=== PATIENT | male | born 1975 | race Caucasian/White ===

== ENCOUNTER 2020-06-04 20:43 | Emergency (ER) | payer BC ==
[2020-06-04 20:55] VITALS: BP 146/89; PULSE 84; TEMP 98
[2020-06-04 21:08] VITALS: RESP 20
[2020-06-04] MEDS ORDERED: IBUPROFEN 600 MG TAB PO STA (21:18)
[2020-06-04] MEDS ORDERED: BACITRACIN OINT 1 EACH PACKET TOPICAL ONE (21:18)
[2020-06-04] MEDS ORDERED: DIPH,PERTUS(ACELL)TETVAC-LF 0.5 ML VIAL IM ONE (21:18)
--- NOTE | 2020-06-04 21:30 | ED ---
General Adult HPI - General Chief complaint: Wound/Laceration Stated complaint: Head Laceration Time Seen by Provider: 06/04/20 21:08 Source: patient Mode of arrival: ambulatory Limitations: no limitations - History of Present Illness Initial comments: Patient is a 44-year-old male presenting to the emergency Department with complaints of laceration to his posterior scalp. Patient states he got tangled in his dog leashes and fell backwards striking the back of his head on a step. He does admit to alcohol use today. He denies loss of consciousness. He does have a headache, no blurry vision, no nausea or vomiting. He denies any blood thinners. He denies any neck pain, no back pain no chest pain or shortness of breath. He states he does not remember when his last tetanus vaccine was. He has no further complaints at this time. - Related Data Allergies Allergy/AdvReac Type Severity Reaction Status Date / Time Penicillins Allergy Unknown Verified 06/04/20 20:55 Childhood Review of Systems ROS Statement: Those systems with pertinent positive or pertinent negative responses have been documented in the HPI. ROS Other: All systems not noted in ROS Statement are negative. Past Medical History Past Medical History: Seizure Disorder History of Any Multi-Drug Resistant Organisms: None Reported Past Surgical History: No Surgical Hx Reported Past Psychological History: No Psychological Hx Reported Smoking Status: Current every day smoker Past Alcohol Use History: Daily Past Drug Use History: Marijuana General Exam - General Exam Comments Initial Comments: GENERAL: Patient is well-developed and well-nourished. Patient is nontoxic and in no acute distress. HEAD: Patient has a large, 6cm laceration noted to the posterior scalp, some mild tenderness around the laceration. No obvious hematoma. No signs of basilar skull fracture. EYES: Pupils equal round and reactive to light, extraocular movements intact, sclera anicteric, conjunctiva are normal. Eyelids were unremarkable. ENT: TMs normal, nares patent, oropharynx clear without exudates. Moist mucous membranes. NECK: Normal range of motion, supple without lymphadenopathy or JVD. No midline tenderness. LUNGS: Unlabored respirations. Breath sounds clear to auscultation bilaterally and equ al. No wheezes rales or rhonchi. HEART: Regular rate and rhythm without murmurs, rubs or gallops. ABDOMEN: Soft, nontender, normoactive bowel sounds. No guarding, no rebound. No masses appreciated. : Deferred MUSCULOSKELETAL: Normal extremities with adequate strength and normal range of motion, no pitting or edema. No clubbing or cyanosis. NEUROLOGICAL: Patient is alert and oriented x 3. Motor and sensory are also intact. Cranial nerves II through XII grossly intact. Symmetrical smile. Normal speech, normal gait. PSYCH: Normal mood, normal affect. SKIN: Warm, Dry, normal turgor, no rashes. Other than noted above. Limitations: no limitations Course Vital Signs 06/04/20 20:51 Temperature 98.0 F Pulse Rate 84 Respiratory 20 Rate Blood Pressure 146/89 O2 Sat by Pulse 98 Oximetry Procedures - Laceration Laceration #1 Consent Obtained: verbal consent Indication: laceration Site: scalp Size (cm): 6 Description: linear Depth: simple, single layer Patient Tolerated Procedure: well Additional Comments: 8 elyssa were used to close patient's wound. He tolerated procedure well. No active bleeding. Medical Decision Making - Medical Decision Making Patient is a 44-year-old male here with a laceration to the back of his head. Patient states he tripped and his dog leashes and fell backwards striking the back of his head on a step. He does admit to alcohol use. No LOC, positive headache, no nausea or vomiting. His exam reveals a 6 cm laceration to the posterior scalp. No obvious hematomas. I did recommend a CT of the brain however patient refused. I discussed the complications that can arise from a bleed in the brain, patient still refused. I closed patient's wound with 8 elyssa. He tolerated procedure well. Tetanus vaccine is updated today. He is stable for discharge. Strict return parameters discussed with the patient and he verbalized understanding. Case discussed with Dr. Rojo. Disposition Clinical Impression: Laceration of scalp, Fall Disposition: HOME SELF-CARE Condition: Stable Instructions (If sedation given, give patient instructions): [facility] (ED) Additional Instructions: Please return to the Emergency Department if symptoms worsen or any other concerns. Elyssa need to be removed in 7-10 days. Keep area clean and dry. Is patient prescribed a controlled substance at d/c from ED?: No Referrals: Ham Alcantara MD [Primary Care Provider] - 1-2 days
== END 2020-06-04 22:04 | disposition home or self-care (01) ==
LOC: EC 20:43
DX: S01.01XA Laceration without foreign body of scalp, initial encounter (principal); W18.39XA Other fall on same level, initial encounter; F17.200 Nicotine dependence, unspecified, uncomplicated; F12.90 Cannabis use, unspecified, uncomplicated; Z23 Encounter for immunization
CPT/HCPCS: 12002; 90471; 90715; 99282

== ENCOUNTER → 2021-01-15 | Outpatient (CLI) | payer BC | END | disposition home or self-care (01) | LOC: LABWHC1 15:51 | PROVIDERS: ATTEND Urology | DX: R97.20 Elevated prostate specific antigen [PSA] (principal) | CPT/HCPCS: 36415; 84153 ==

== ENCOUNTER → 2021-02-25 | Outpatient (CLI) | payer BC ==
--- NOTE | 2021-02-25 10:13 | CT ---
EXAMINATION TYPE: CT abdomen pelvis w con DATE OF EXAM: 02/25/2021 COMPARISON: None. HISTORY: Prostate cancer CT DLP: 1921.10 mGycm, Automated Exposure Control for Dose Reduction was Utilized. CONTRAST: CT scan of the abdomen and pelvis is performed with oral and with IV Contrast, patient injected with 100 mL of Isovue 300. FINDINGS: LUNG BASES: No significant abnormality is appreciated. LIVER/GB: No significant abnormality is appreciated. PANCREAS: No significant abnormality is seen. SPLEEN: No significant abnormality is seen. ADRENALS: No significant abnormality is seen. KIDNEYS: Symmetric cortical medullary uptake and excretion without hydronephrosis seen bilaterally. BOWEL: Normal appearing appendix from the cecum in the right lower quadrant. Oral contrast reaches le jose of the rectum. Mild to moderate wall thickening in the sigmoid colon. Mild diverticular disease a t this level. No significant surrounding fat stranding. Finding position product of chronic diverticu litis. Terminal ileum appears within normal limits. No suspicious small or large bowel dilatation. PROSTATE/SEMINAL VESICLES: Prostate gland measures normal in size. Adjacent pelvic phlebolith more nu merous on the left. Seminal vesicles appear unremarkable. No abnormal pelvic adenopathy clearly seen. LYMPH NODES: No greater than 1cm abdominal or pelvic lymph nodes are appreciated. OSSEOUS STRUCTURES: Transitional type L6 vertebra is sacralized on the right. Mild disc space narrowi ng with vacuum disc phenomenon L5- L6 level. Facet arthropathy lower lumbar levels. Moderate axial felix int space loss both hips. Nonspecific subcentimeter sclerotic foci bilateral iliac bones of both hip joints on the left coronal image 72 and on the right coronal image 74 favor benign bone islands over early sclerotic metastatic disease OTHER: No significant additional abnormality is seen. IMPRESSION: Nonspecific 2 subcentimeter sclerotic foci in the pelvis favor benign bone islands but ca n be followed. No additional suspicious lesions or lymph nodes to suggest metastatic disease.
--- NOTE | 2021-02-25 14:35 | NM ---
EXAMINATION TYPE: NM bone scan whole body DATE OF EXAM: 02/25/2021 COMPARISON: NONE HISTORY: C61 Prostate CA Delayed whole-body scanning was performed following the injection of 24.3 mCi Tc 99m MDP. Images acq uired 5 hours post injection. FINDINGS: Focal increased uptake involving posterior right rib #10. There is also vague uptake involving the T9 pedicle on the right. Vague increased calvarial uptake seen posteriorly on the right as well. No add itional abnormal areas of increased uptake noted. IMPRESSION: I cannot exclude metastatic disease to the right posterior rib #10, right T9 pedicle and bony calvari um. Radiographic correlation is recommended.
== END | disposition home or self-care (01) ==
LOC: RADCTMAIN 07:37
PROVIDERS: ATTEND Urology
DX: C61 Malignant neoplasm of prostate (principal); M89.8X8 Other specified disorders of bone, other site
CPT/HCPCS: 74177; 78306; A9503; Q9967

== ENCOUNTER → 2021-03-06 | Outpatient (CLI) | payer BC ==
--- NOTE | 2021-03-07 08:45 | XR ---
EXAMINATION TYPE: XR ribs 4 views RT, XR thoracic spine 5 views complete, XR skull 4 views complete DATE OF EXAM: 03/06/2021 COMPARISON: Correlation CT abdomen pelvis 02/25/2021 HISTORY: 45-year-old male C61, history of prostate cancer. FINDINGS: Right RIBS: Right hemithorax appears clear without pneumothorax, consolidation, or pleural effusion. Right-sided ribs show no periostitis or osteolysis. Thoracic spine: There is anterior and right lateral endplate spondylosis in the lower thoracic spine noted. All of th e pedicles are visualized. Vertebral body heights are preserved. Alignment is maintained. Skull: Possible faint lucency along the right posterior calvarium. No periosteal reaction or focal sclerotic lesion identified. IMPRESSION: 1. Right RIBS: No CT or radiographic correlate to the focal increased activity involving the posterio r right 10th or 11th rib seen on the nuclear medicine exam. Unsure if this is some type of contaminat ion. Occult osseous disease is not excluded at this time. If PSA values are not suggestive of osseous metastases, consider repeating the nuclear medicine exam. 2. Thoracic spine: Activity along the right lateral T9 or T10 level on bone scan may correspond to en dplate spondylosis rather than metastatic disease. 3. Skull: Questionable subtle lucency along the right posterior calvarium. This is not a typical appe arance for bony prostate metastases. It is nonspecific; hemangioma is possible. Other lytic lesion no t excluded. Recommend CT of the brain to further evaluate.
== END | disposition home or self-care (01) ==
LOC: RADXRMAIN 16:13
PROVIDERS: ATTEND Urology
DX: C61 Malignant neoplasm of prostate (principal)
CPT/HCPCS: 70260; 72072

== ENCOUNTER → 2021-03-21 | Outpatient (CLI) | payer BC ==
[2021-03-21 14:15] LABS: Basophils % (A) 1 %; Eosinophils # (A) 0.1 k/uL (0-0.7); Eosinophils % (A) 1 %; HCT 45.5 % (39.0-53.0); HGB 14.8 gm/dL (13.0-17.5); Lymphocytes # (A) 1.9 k/uL (1.0-4.8); Lymphocytes % (A) 27 %; MCH 32.2 pg (25.0-35.0); MCHC 32.5 g/dL (31.0-37.0); MCV 99.1 fL (80.0-100.0); Mean Platelet Volume 7.5; Monocytes # (A) 0.5 k/uL (0-1.0); Monocytes % (A) 7 %; Neutrophils # (A) 4.4 k/uL (1.3-7.7); Neutrophils % (A) 63 %; Platelet Count 258 k/uL (150-450); RBC 4.59 m/uL (4.30-5.90); RDW 12.4 % (11.5-15.5); WBC 6.9 k/uL (3.8-10.6)
[2021-03-21 14:30] LABS: African American GFR (CKD) >90 (>60 ml/min/1.73 sqM); Anion Gap 10 mmol/L; Blood Urea Nitrogen 14 mg/dL (9-20); Calcium 10.2 mg/dL (8.4-10.2); Carbon Dioxide 26 mmol/L (22-30); Chloride 106 mmol/L (98-107); Glucose 101 mg/dL (74-99); Non-African American GFR(CKD) >90 (>60 ml/min/1.73 sqM); Potassium 3.9 mmol/L (3.5-5.1); Sodium 142 mmol/L (137-145)
[2021-03-21 14:55] LABS: Appearance,Urine Cloudy (Clear); Bilirubin,Urine Negative (Negative); Blood,Urine Negative (Negative); Color,Urine Yellow; Glucose,Urine (UA) Negative (Negative); Ketones,Urine Trace (Negative); Leukocyte Esterase,Urine Trace (Negative); Mucus,Urine Many /hpf; Nitrite,Urine Negative (Negative); PH, Urine 5.5 (5.0-8.0); Protein,Urine Trace (Negative); RBC,Urine 1 /hpf (0-5); Specific Gravity,Urine 1.029 (1.001-1.035); Urobilinogen,Urine <2.0 mg/dL (<2.0); WBC,Urine 5 /hpf (0-5)
== END | disposition home or self-care (01) ==
LOC: LABWHC1 13:26
PROVIDERS: ATTEND Urology
DX: Z01.818 Encounter for other preprocedural examination (principal); C61 Malignant neoplasm of prostate
CPT/HCPCS: 80048; 81001; 85025; 87086; 93005

== ENCOUNTER 2021-03-27 09:18 | Day surgery (SDC) | payer BC ==
[2021-03-20 16:17] VITALS: BMI 35.2
--- NOTE | 2021-03-22 15:50 | P.HPIHPCON ---
History of Present Illness H&P Date: 03/22/21 Chief Complaint: prostate cancer This is a 45-year-old male with history of [place] 6 prostate cancer, his PSA was 22. He underwent bone scan and a CT, which did not completely rule out metastatic disease. Discussed with him based on his pathology the potential of metastatic disease is low, but his PSA level is concerning. Discussed with him given his age I do recommend proceeding with treatments, but discussed with him if there is metastatic disease, then the surgery will not be curative. Discussed with him the option of robotic prostatectomy, versus radiation. Both options were discussed in detail. He agreed to proceed with a robotic prostatectomy. Discussed with him the risk which includes but not limited to bleeding, infection, injury to nearby organs which includes but not limited to bladder, bowel, rectum. Discussed with him also the risk of erectile dysfunction and urinary incontinence. Discussed the potential of needing additional treatments in the future. He understood all the risk and agreed to proceed Consent for Procedure: I have explained the operation/procedure to the patient, including the risks, benefits, side effects, alternative therapies (including not receiving the proposed treatment or service), the likelihood of the patient achieving his/her goals, and potential recuperation problems for the procedure/sedation/analgesia, as well as any blood products, if indicated. I also explained to the patient the risks, benefits and side effects of the alternatives, as well as the risks related to not receiving the proposed procedure, care, treatment, or services. Past Medical History Past Medical History: Cancer, GERD/Reflux, Seizure Disorder Additional Past Medical History / Comment(s): Dog bite on hand 03/16/21 on [facility]una[facility] cyclineladio, patient states Dr ayala. Current prostate cancer. "BP a little high, no medication necessary". Last seizure 4 yrs ago. History of Any Multi-Drug Resistant Organisms: None Reported Past Surgical History: No Surgical Hx Reported Past Anesthesia/Blood Transfusion Reactions: Motion Sickness Additional Past Anesthesia/Blood Transfusion Reaction / Comment(s): Has never had anesthesia. Motion sickness X1. Past Psychological History: No Psychological Hx Reported Smoking Status: Current every day smoker Past Alcohol Use History: Daily, Heavy Additional Past Alcohol Use History / Comment(s): Has been smoking for 30 yrs, 1 ppd or less. Past Drug Use History: Marijuana Additional Drug Use History / Comment(s): Occasional Marijuana, 3-4 times a week. Aware no Alcohol or Marijuana 24 hrs prior to procedure. - Past Family History Mother Family Medical History: No Reported History Medications and Allergies Home Medications Medication Instructions Recorded Confirmed Type Doxycycline [Vibramycin] 100 mg PO BID 03/20/21 03/20/21 History Omeprazole [PriLOSEC] 20 mg PO AC-BRKFST PRN 03/20/21 03/20/21 History carBAMazepine 200 mg PO BID 03/20/21 03/20/21 History Doxylamine Succinate [Unisom] 25 mg PO HS PRN 03/21/21 03/21/21 History Melatonin 10 mg PO HS PRN 03/21/21 03/21/21 History Allergies Allergy/AdvReac Type Severity Reaction Status Date / Time Penicillins Allergy Unknown Verified 03/20/21 16:00 Childhood Surgical - Exam - General no distress, no pain - Eyes normal ocular movement - ENT normal nares, normal mucosa - Respiratory normal expansion, normal respiratory effort - Abdomen Abdomen: soft, non tender - Psychiatric oriented to time, oriented to person, oriented to place Assessment and Plan Assessment: 45-year-old male with history of prostate cancer -Or for robotic prostatectomy, with pelvic lymph node dissection
[~2021-03-27 09:18] MED LIST: GENTAMICIN 120 MG in SODIUM CHLORIDE 0.9% 100 ML IVPB PRN; HEPARIN SODIUM,PORCINE/PF 5,000 UNIT/0.5 ML SYRINGE SQ PRN
[2021-03-27] MEDS ORDERED: DEXAMETHASONE SOD PHOSPHATE 4 MG/ML 1 ML VIAL IV ONE (10:00)
[2021-03-27] MEDS ORDERED: ONDANSETRON 4 MG/2 ML VIAL ONE ×2 (10:03→13:00)
[2021-03-27] MEDS ORDERED: LACTATED RINGERS 1,000 ML IV ONE ×3 (10:11→17:32)
[2021-03-27] MEDS ORDERED: MIDAZOLAM 2 MG/2 ML VIAL IVP ONE (10:24)
[2021-03-27] MEDS: CLINDAMYCIN 600 MG in DEXTROSE 5% IN WATER 50 ML IVPB PRN ×4 (10:52→11:55)
--- NOTE | 2021-03-27 11:20 | P.ANPRN ---
Procedure Note - Anesthesia - Nerve Block Performed Bilateral Erector Spinae Single Time Out Performed: Yes (1023) Date of Procedure: 03/27/21 Location of Patient: PreOp Indication: Acute Post-Operative Pain, Dx/Pain Location (Abdominal pain) Specifically requested for management of pain by DrGurdeep: Bull Jaimes Sedation Type: Sedate with meaningful contact maintained Preparation: Sterile Prep Position: Prone Catheter: None Needle Gauge: 21 Ultrasound used to visualize needle placement: Yes Ultrasound used to observe medication spread: Yes Injectate: 0.5% Ropivacaine (see comment for volume) (30 cc + saline 20 cc) Blood Aspirated: No Pain Paresthesia on Injection Noted: No Resistance on Injection: Normal Image Stored and Saved: Yes Events: Uneventful and Well Tolerated
[2021-03-27] MEDS ORDERED: diphenhydrAMINE 25 MG CAP PO PRN (13:00)
[2021-03-27] MEDS ORDERED: NEOSTIGMINE 1 MG/ML 10 ML VIAL ONE (13:00)
[2021-03-27] MEDS ORDERED: ROPIVACAINE 5 MG/ML 30 ML VIAL ONE (13:00)
[2021-03-27] MEDS ORDERED: MIDAZOLAM 2 MG/2 ML VIAL ONE (13:00)
[2021-03-27] MEDS ORDERED: SUCCINYLCHOLINE CHLORIDE 100 MG/5 ML SYR IV ONE (13:00)
[2021-03-27] MEDS ORDERED: PHENYLEPHRINE-0.9% NACL SYG 1,000 MCG/10 ML SYRINGE ONE (13:00)
[2021-03-27] MEDS ORDERED: LIDOCAINE 1% INJ 10MG/ML (20 ML MDV) ONE (13:00)
[2021-03-27] MEDS ORDERED: ROCURONIUM 10 MG/ML (5 ML VIAL) IV ONE (13:00)
[2021-03-27] MEDS ORDERED: HYDROmorphone (PF) 1 MG/ML ONE (13:00)
[2021-03-27] MEDS ORDERED: GLYCOPYRROLATE 0.2 MG/ML 2 ML VIAL ONE (13:00)
[2021-03-27] MEDS ORDERED: MELATONIN 5 MG TABLET PO PRN (13:00)
[2021-03-27] MEDS ORDERED: PANTOPRAZOLE 40 MG TABLET PO PRN (13:00)
[2021-03-27] MEDS ORDERED: PROPOFOL 10 MG/ML 20 ML VIAL IV ONE (13:00)
[2021-03-27] MEDS ORDERED: fentaNYL (PF) 50 MCG/ML 2 ML AMP ONE (13:00)
[2021-03-27] MEDS ORDERED: SODIUM CHLORIDE 0.9% (PF) 10 ML VIAL ONE (13:00)
[2021-03-27] MEDS ORDERED: ONDANSETRON 4 MG/2 ML VIAL IVP PRN (13:01)
[2021-03-27] MEDS ORDERED: BUPIVACAINE (PF) 0.25% 30 ML VIAL SQ ONE (16:55)
--- NOTE | 2021-03-27 18:23 | P.OP ---
Date of Procedure: 03/27/21 Preoperative Diagnosis: prostate cancer Postoperative Diagnosis: same Procedure(s) Performed: robotic prostatectomy and pelvic lymph node dissection Implants: None Anesthesia: MIO Surgeon: Bull Jaimes Estimated Blood Loss (ml): 250 Pathology: other (Prostate, bilateral seminal vesicle, prostate base, bilateral pelvic lymph nodes) Condition: stable Disposition: PACU Indications for Procedure: This is a 45-year-old male with history of [place] 6 prostate cancer, his PSA was 22. He underwent bone scan and a CT, which did not completely rule out metastatic disease. Discussed with him based on his pathology the potential of metastatic disease is low, but his PSA level is concerning. Discussed with him given his age I do recommend proceeding with treatments, but discussed with him if there is metastatic disease, then the surgery will not be curative. Discussed with him the option of robotic prostatectomy, versus radiation. Both options were discussed in detail. He agreed to proceed with a robotic prostatectomy. Discussed with him the risk which includes but not limited to bleeding, infection, injury to nearby organs which includes but not limited to bladder, bowel, rectum. Discussed with him also the risk of erectile dysfunctio n and urinary incontinence. Discussed the potential of needing additional treatments in the future. He understood all the risk and agreed to proceed Operative Findings: Prostate adherent along the left base Description of Procedure: After preoperative antibiotics were started, the patient was taken to the operating room. Anesthesia was induced and the patient was placed in supine position, with adequate padding of the pressure points, shoulders, back, legs and arms. He was then prepped and draped in the standard fashion. A critical p ause was performed using two patient identifiers. A 16F linares catheter was placed to gravity drainage. A pneumo-peritoneum was created with placement of a Veress needle to 20 mm Hg without complication, and a 8 Fr trocar was placed above the umbillicus. Under direct vision a 8mm robotic ports was placed lateral to each rectus slightly below the camera port. The left iliac fossa 8mm port was placed. The right trust administrative assistant right iliac fossa 12mm port and right paramedian 5mm portwere placed. After the patient was placed in the trendelenberg position, the robot was then docked to the 8mm robotic ports and then each robotic arm and tower was checked in relation to the patient's legs and hands to avoid inadvertent compression. The peritoneal cavity was inspected. Patient had adhesion along the left lower quadrant which was taken down sharply An inverted U-shaped incision began laterally to the left medial umbilical ligament and extended high across the midline to the right umbilical ligament. The limbs of the "U" extended to the level of the vasa on both sides. We next developed the preperitoneal space and the space of Retzius. bilateral obturator and external iliac lymph node packets were carefully dissected after careful visualization of the hypogastric artery and obturator nerve. There was careful attention paid to hemostasis with judicious use of cautery. Cautery was used to dissected the bladder away from the prostate. After the anterior bladder neck was incised and the bladder entered the the posterior bladder neck was exposed and the ureteral orifces identified. The posterior bladder neck was then incised and dissected away from the prostate. The vas and the seminal vesicles were now exposed and dissected to their insertions into the prostate and were not spared. The posterior layer of the Denonvillier's fascia was incised to enter solange the plane between prostate and perirectal fat. The left base of the prostate was fairly adherent, there was no surgical plane. Additionally the prosthetic tissue was very friable, which limited the ability to retract with the fourth arm. I was able to create a posterior plane along the left base sharply., There was no evidence of rectal injury. Each lateral pedicle was controlled with clips and cautery for hemostasis. No nerve preservation was performed on the left, complete nerve preservation was performed on the right . The puboprostatic ligament was incised where it inserted into the apex of the prostate and a plane between urethra and dorsal venous complex developed to expose the anterior urethral surface. The anterior wall of the urethra was transected with the cut setting a few millimeters distal to the apex of the prostate. The dorsal vein was ligated using 3-0 V lock The urethrovesical anastomosis was performed . the posterior denovillers was reapproximated using 3-0 V lock. A 6 and 6 inch 3-0 V-Lock suture was used to anastomose the urethra and bladder, starting at the 6:00 posterior position. Mucosa was secured in every stitch, to ensure a mucosa to mucosa anastomosis. The stitch was regularly cinched and the anastomosis tightened. Care was taken to not violate the ureteral orifices. The Linares catheter was advanced, the bladder filled, and the anastomosis was tested, as described above. Anastomsis was watertight at 200 mL The periumbilical fascia was closed with 1-0-PDS suture in [id number] fashion. All ports were closed with a subcuticular 4-0 monocryl and Dermabond. Sponge, instrument, and needle counts were correct at the end of the case x2. All specimens including prostate and lymph nodes were sent to pathology for diagnosis and will be available in a week. The patient tolerated the surgery well and without complication. He awoke without difficulty and was taken to the recovery room in stable condition
[2021-03-27] MEDS: KETOROLAC 30 MG/ML 1 ML VIAL IVP SCH (19:17)
[2021-03-27] MEDS: carBAMazepine 200 MG TAB PO SCH (21:44)
[2021-03-27] MEDS: D5-0.45% NACL WITH KCL 20MEQ/L 1,000 ML IV SCH (21:51)
[2021-03-27] MEDS: HYDROcodone/APAP 5-325MG 1 EACH TAB PO PRN (23:02)
[2021-03-28] MEDS: HEPARIN SODIUM,PORCINE/PF 5,000 UNIT/0.5 ML SYRINGE SQ SCH ×3 (03:36→08:33)
[2021-03-28] MEDS: D5-0.45% NACL WITH KCL 20MEQ/L 1,000 ML IV SCH ×2 (05:21→12:06)
[2021-03-28 05:25] VITALS: BP 121/76; PULSE 98; RESP 18; TEMP 98.1
[2021-03-28] MEDS: KETOROLAC 30 MG/ML 1 ML VIAL IVP SCH ×3 (06:02→12:05)
[2021-03-28] MEDS: HYDROcodone/APAP 5-325MG 1 EACH TAB PO PRN ×2 (06:04→10:55)
--- NOTE | 2021-03-28 07:51 | P.DS ---
Providers Attending physician: Bull Jaimes MD Primary care physician: Ham Alcantara [facility] Course: This is a 45 yo male underwent robotic prostatecomy on 03/27/21, please see op note dated 03/27/21 for full surgery details. He was admitted to the hospital postoperatively. He did well in the postoperative period. He was discharged home on postop day #1 with the Ramos catheter. At time of discharge he was tolerating a diet, ambulating, and pain was well-controlled Plan - Discharge Summary Discharge Rx Participant: Yes New Discharge Prescriptions: No Action Omeprazole [PriLOSEC] 20 mg PO AC-BRKFST PRN PRN Reason: Heartburn Doxylamine Succinate [Unisom] 25 mg PO HS PRN PRN Reason: Insomnia carBAMazepine 200 mg PO BID Melatonin 10 mg PO HS PRN PRN Reason: Insomnia Discharge Medication List Omeprazole [PriLOSEC] 20 mg PO AC-BRKFST PRN 03/20/21 [History] carBAMazepine 200 mg PO BID 03/20/21 [History] Doxylamine Succinate [Unisom] 25 mg PO HS PRN 03/21/21 [History] Melatonin 10 mg PO HS PRN 03/21/21 [History]
[2021-03-28] MEDS: carBAMazepine 200 MG TAB PO SCH (08:33)
== END 2021-03-28 12:30 | disposition home or self-care (01) ==
LOC: OR 09:18 → 5NMEDONC 18:20 → OR 03-28 12:30
PROVIDERS: ATTEND Urology
DX: C61 Malignant neoplasm of prostate (principal); Z20.822 Contact with and (suspected) exposure to COVID-19
CPT/HCPCS: 55815; 64999; 76942; 86900; 86901; 86850; 88307; 88309; 87635; 36415; C1762; J2250; J1100; J2710; J2405; J2001; J3010; J1885 ×2; J1170; J2795; J2370; J0330; J2704; J1644 ×2

== ENCOUNTER 2021-07-31 14:55 | Observation (INO) | payer BC ==
[2021-07-31] MEDS ORDERED: SODIUM CHLORIDE 0.9% 1,000 ML IV STA (15:25)
[2021-07-31] MEDS ORDERED: SODIUM CHLORIDE 0.9% 500 ML 500 ML IV STA (15:25)
[2021-07-31] MEDS ORDERED: metroNIDAZOLE-NS PMX 500 MG in SALINE 1 100ML.BAG IVPB STA (15:26)
[2021-07-31] MEDS ORDERED: cefTRIAXone IN SWFI 1,000 MG/10 ML SYRINGE IVP STA (15:26)
--- NOTE | 2021-07-31 15:40 | ED ---
General Adult HPI - General Chief complaint: Abdominal Pain Stated complaint: Irregular CT Time Seen by Provider: 07/31/21 15:20 Source: patient, RN notes reviewed, old records reviewed Mode of arrival: ambulatory Limitations: no limitations - History of Present Illness Initial comments: 45-year-old male presenting for evaluation of right lower quadrant abdominal pain which has been present for the past 3 days. He was sent for outpatient computed tomography scan by his primary care physician Dr. Alcantara to rule out appendicitis. This test was performed earlier today and was positive for acute appendicitis. He has not felt well for 3 days. No measured fever. No vomiting. No diarrhea. Patient denies anticoagulation. He did not eat at all today. - Related Data Home Medications Medication Instructions Recorded Confirmed Omeprazole [PriLOSEC] 20 mg PO AC-BRKFST PRN 03/20/21 03/20/21 carBAMazepine 200 mg PO BID 03/20/21 03/20/21 Doxylamine Succinate [Unisom] 25 mg PO HS PRN 03/21/21 03/21/21 Melatonin 10 mg PO HS PRN 03/21/21 03/21/21 Previous Rx's Medication Instructions Recorded HYDROcodone/APAP 5-325MG [Touchet 1 tab PO Q6HR PRN 3 Days #6 tab 03/28/21 5-325] Ketorolac [Toradol] 10 mg PO Q6HR PRN #15 tab 03/28/21 Sulfamethox-Tmp 800-160Mg [Bactrim 1 tab PO Q12HR #6 tab 03/28/21 DS 800-160 mg] Allergies Allergy/AdvReac Type Severity Reaction Status Date / Time Penicillins Allergy Unknown Verified 07/31/21 15:07 Childhood Review of Systems ROS Statement: Those systems with pertinent positive or pertinent negative responses have been documented in the HPI. ROS Other: All systems not noted in ROS Statement are negative. Past Medical History Past Medical History: Cancer, GERD/Reflux, Seizure Disorder Additional Past Medical History / Comment(s): Dog bite on hand 03/16/21 on Doxycycline, patient states Dr ayala. Current prostate cancer. "BP a little high, no medication necessary". Last seizure 4 yrs ago. History of Any Multi-Drug Resistant Organisms: None Reported Past Surgical History: Prostate Surgery Past Anesthesia/Blood Transfusion Reactions: Motion Sickness Additional Past Anesthesia/Blood Transfusion Reaction / Comment(s): Has never had anesthesia. Motion sickness X1. Past Psychological History: No Psychological Hx Reported Smoking Status: Current every day smoker Past Alcohol Use History: Daily, Heavy Past Drug Use History: Marijuana - Past Family History Mother Family Medical History: No Reported History General Exam Limitations: no limitations General appearance: alert, in no apparent distress Head exam: Present: atraumatic, normocephalic Eye exam: Present: normal appearance, PERRL ENT exam: Present: normal exam Neck exam: Present: normal inspection. Absent: tenderness, meningismus Respiratory exam: Present: normal lung sounds bilaterally. Absent: respiratory distress, wheezes Cardiovascular Exam: Present: regular rate, normal rhythm GI/Abdominal exam: Present: soft, tenderness (Right lower quadrant tenderness). Absent: distended, guarding Extremities exam: Present: normal inspection, normal capillary refill. Absent: pedal edema, calf tenderness Neurological exam: Present: alert, oriented X3, CN II-XII intact. Absent: motor sensory deficit Psychiatric exam: Present: normal affect, normal mood Skin exam: Present: warm, dry, intact. Absent: cyanosis, diaphoretic Course Vital Signs 07/31/21 15:07 Temperature 98.2 F Pulse Rate 89 Respiratory 16 Rate Blood Pressure 161/93 O2 Sat by Pulse 94 L Oximetry Medical Decision Making - Medical Decision Making 45-year-old male who presented from outpatient computed tomography scan with acute appendicitis. Patient seen in the emergency department, he does have signs and symptoms consistent with acute appendicitis he will be admitted for surgical evaluation. Case discussed with Dr. Sawyer who will admit. Patient's primary care physician is placed on consult. Laboratory studies are pending. He started on antibiotics. Disposition Clinical Impression: Acute appendicitis Disposition: ADMITTED IP TO THIS HOSP Condition: Stable Is patient prescribed a controlled substance at d/c from ED?: No Referrals: Ham Alcantara MD [Primary Care Provider] - 1-2 days Time of Disposition: 16:02
[2021-07-31] MEDS ORDERED: ACETAMINOPHEN TAB 325 MG TAB PO PRN (16:00)
[2021-07-31] MEDS ORDERED: HYDROmorphone 0.5 MG/0.5 ML SYRINGE IVP PRN (16:00)
[2021-07-31] MEDS ORDERED: NALOXONE 0.4 MG/ML 1 ML VIAL IV PRN (16:00)
[2021-07-31] MEDS ORDERED: ONDANSETRON 4 MG/2 ML VIAL IVP PRN (16:00)
[2021-07-31 16:10] LABS: ALT 36 U/L (4-49); AST 44 U/L (17-59); African American GFR (CKD) >90 (>60 ml/min/1.73 sqM); Albumin 4.2 g/dL (3.5-5.0); Alkaline Phosphatase 102 U/L (38-126); Anion Gap 10 mmol/L; Blood Urea Nitrogen 6 mg/dL (9-20); Calcium 9.4 mg/dL (8.4-10.2); Carbon Dioxide 20 mmol/L (22-30); Chloride 110 mmol/L (98-107); Glucose 109 mg/dL (74-99); INR 0.9 (<1.2); Non-African American GFR(CKD) >90 (>60 ml/min/1.73 sqM); Partial Thromboplastin Time 23.7 sec (22.0-30.0); Potassium 2.9 mmol/L (3.5-5.1); Prothrombin Time 9.7 sec (9.0-12.0); Sodium 140 mmol/L (137-145); Total Bilirubin 0.4 mg/dL (0.2-1.3); Total Protein 6.9 g/dL (6.3-8.2)
[2021-07-31 16:16] LABS: HCT 45.7 % (39.0-53.0); HGB 15.4 gm/dL (13.0-17.5); MCH 32.8 pg (25.0-35.0); MCHC 33.6 g/dL (31.0-37.0); MCV 97.7 fL (80.0-100.0); Mean Platelet Volume 7.4; Platelet Count 257 k/uL (150-450); RBC 4.68 m/uL (4.30-5.90); RDW 13.6 % (11.5-15.5); WBC 6.3 k/uL (3.8-10.6)
[2021-07-31 16:45] LABS: Lymphocytes # (M) 1.89 k/uL (1.0-4.8); Monocytes # (M) 1.01 k/uL (0-1.0); Neutrophils % (M) 54 %; Nucleated Red Blood Cells 0 /100 WBC (0-0); Total Cells Counted 100
[2021-07-31] MEDS ORDERED: Potassium Replacement Protocol 1 EACH MISC MISCELLANE PRN (17:10)
[2021-07-31] MEDS ORDERED: SODIUM CHLORIDE 0.9% 2,000 ML IV ONE (17:32)
[2021-07-31] MEDS: POTASSIUM CHLORIDE 10 MEQ in WATER FOR INJECTION 1 100ML.BAG IVPB SCH ×6 (17:50→23:43)
[2021-07-31] MEDS ORDERED: POTASSIUM CHLORIDE ER 20 MEQ TAB.ER PO SCH (18:00)
[2021-07-31] MEDS ORDERED: diphenhydrAMINE 50 MG/ML 1 ML VIAL IVP PRN (18:37)
--- NOTE | 2021-07-31 19:20 | P.GSHP ---
History of Present Illness H&P Date: 07/31/21 CHIEF COMPLAINT: Right lower quadrant pain HISTORY OF PRESENT ILLNESS: The patient is a 45 year old male who reports 2 days ago developing right lower quadrant abdominal pain. No prior episodes. Pain was crampy in nature and moderate. He denies any antibiotics. No blood in stools. He reports moderate appetite. He say his primary care provider who ordered a CT scan. As a result of the findings of appendicitis, he was sent to the emergency room for admission. PAST MEDICAL HISTORY: See list and reviewed PAST SURGICAL HISTORY: See list and reviewed MEDICATIONS: See list and reviewed ALLERGIES: See list and reviewed SOCIAL HISTORY: See list and reviewed FAMILY HISTORY: See list and reviewed REVIEW OF ORGAN SYSTEMS: CONSTITUTIONAL: No fevers or chills. Has morbid obesity, BMI 35.3 EYES: Denies any trouble with vision. No glasses. HEENT: No difficulties with hearing. No nosebleeds. No difficulty swallowing. RESPIRATORY: Denies pneumonia. Denies any troubles with breathing or dyspnea on exertion. Has tobacco abuse disorder. CARDIOVASCULAR: Denies any chest pain, palpitations, or recent heart attacks. GASTROINTESTINAL: Denies fatty food intolerance. Denies change in bowel habits and gas bloat. Has gastroesophageal reflux disease. Has motion sickness. GENITOURINARY: Denies any blood in urine or increased urinary frequency. Recent prostatectomy for prostate cancer Mar 2021, 5 months ago NEUROLOGICAL: Denies any numbness or tingling along the distal extremities. Has disorders. MUSCULOSKELETAL: Denies any back pain, stiffness or joint arthritis. SKIN: No current skin cancer. No rash. PSYCHIATRIC: Denies current depression or suicidal thoughts. ENDOCRINE: Denies current thyroid disorders. Denies any blood sugar glucose intolerance. HEME/LYMPHATIC: Denies any lumps and bumps around the neck. No recent deep venous thrombosis. ALLERGY/IMMUNOLOGY: No immunoglobulin therapy. No immune deficiencies. BREAST: Denies current breast lumps, pain or nipple discharge. PHYSICAL EXAM: VITALS: Reviewed CONSTITUTIONAL: Well developed and in no acute distress. EYES: Conjuctivae without sclera icterus. Extraocular movements grossly intact. HEAD, EARS, NOSE, THROAT: Moist buccal mucosa. Head is atraumatic, normocephalic. Hears conversational speech. No nasal drainage. NECK: Supple. No JV distention. No thyroidomegaly. RESPIRATORY: Non-labored respirations and equal bilateral excursions. No gross wheezes. CARDIOVASCULAR: Regular rate and rhythm. Palpable 2+ radial pulses. ABDOMEN: No peritonitis. Tender right lower quadrant. LYMPH: No neck lymphadenopathy. MUSCULOSKELETAL: No clubbing cyanosis. SKIN: Warm and well perfused with good skin turgor. NEUROLOGIC: Cranial nerves II through XII grossly intact. No focal or lateralizing signs. PSYCH: Appropriate affect. Alert and oriented to person, place and time. Displays appropriate insight. CLINCAL LABS: Reviewed. WBC 6.3 and normal. Hgb 15.4 and normal. Potassium low 2.9. Lactic acid elevated 2.9 IMAGING: Independently reviewed alongside CT of the abdomen and pelvis with thickening of the colon of the cecum, ascending colon and transverse colon. Inflammation of the appendix. Mass along the right pelvis. Bilateral inguinal lipomas. This is my independent interpretation. RADIOLOGY: Report reviewed CT report pelvis cyst 3 x 5 cm along right pelvis. Diverticulosis with colitis and inflammation of the colon RECORDS: previous old records reviewed pathology with adenocarcinoma of the prostate. ASSESSMENT: 1. Abnormal computed tomography scan for appendicitis 2. Abdominal painm right lower quadrant 3. History of prostate cancer 4. Tobacco abuse disorder PLAN: 1. Admission for early appendicitis. 2. Broad spectrum antibiotics. 3. DVT prophylaxis 4. Robotic appendectomy described 5. NPO after midnight. 6. Nicotine patch 7. Patient elevated risk for complications with tobacco abuse disorder and morbid obesity. Past Medical History Past Medical History: Cancer, GERD/Reflux, Seizure Disorder Additional Past Medical History / Comment(s): Dog bite on hand 03/16/21 on Doxycycline, patient states aware. Current prostate cancer. "BP a little high, no medication necessary". Last seizure 4 yrs ago. History of Any Multi-Drug Resistant Organisms: None Reported Past Surgical History: Prostate Surgery Past Anesthesia/Blood Transfusion Reactions: Motion Sickness Additional Past Anesthesia/Blood Transfusion Reaction / Comment(s): Has never had anesthesia. Motion sickness X1. Past Psychological History: No Psychological Hx Reported Smoking Status: Current every day smoker Past Alcohol Use History: Daily, Heavy Additional Past Alcohol Use History / Comment(s): Has been smoking for 30 yrs, 1 ppd or less. Past Drug Use History: Marijuana Additional Drug Use History / Comment(s): Occasional Marijuana, 3-4 times a week. Aware no Alcohol or Marijuana 24 hrs prior to procedure. - Past Family History Mother Family Medical History: No Reported History Medications and Allergies Home Medications Medication Instructions Recorded Confirmed Type Omeprazole [PriLOSEC] 20 mg PO DAILY PRN 03/20/21 07/31/21 History carBAMazepine 200 mg PO BID 03/20/21 07/31/21 History Sildenafil [Revatio] 20 mg PO DAILY 07/31/21 07/31/21 History diphenhydrAMINE HCL [Benadryl] 25 mg PO HS 07/31/21 07/31/21 History Allergies Allergy/AdvReac Type Severity Reaction Status Date / Time Penicillins Allergy Unknown Verified 07/31/21 16:18 Childhood Surgical - Exam Vital Signs Temp Pulse Resp BP Pulse Ox 98.2 F 89 16 161/93 94 L 07/31/21 15:07 07/31/21 15:07 07/31/21 15:07 07/31/21 15:07 07/31/21 15:07 Results - Labs 07/31/21 14:45 07/31/21 14:45 Abnormal Lab Results - Last 24 Hours (Table) 07/31/21 07/31/21 07/31/21 Range/Units 14:45 14:45 14:45 Monocytes # (Manual) 1.01 H (0-1.0) k/uL Potassium 2.9 L (3.5-5.1) mmol/L Chloride 110 H (98-107) mmol/L Carbon Dioxide 20 L (22-30) mmol/L BUN 6 L (9-20) mg/dL Creatinine 0.57 L (0.66-1.25) mg/dL Glucose 109 H (74-99) mg/dL Plasma Lactic Acid Samuel 2.6 H* (0.7-2.0) mmol/L Diabetes panel 07/31/21 Range/Units 14:45 Sodium 140 (137-145) mmol/L Potassium 2.9 L (3.5-5.1) mmol/L Chloride 110 H (98-107) mmol/L Carbon Dioxide 20 L (22-30) mmol/L BUN 6 L (9-20) mg/dL Creatinine 0.57 L (0.66-1.25) mg/dL Glucose 109 H (74-99) mg/dL Calcium 9.4 (8.4-10.2) mg/dL AST 44 (17-59) U/L ALT 36 (4-49) U/L Alkaline Phosphatase 102 (38-126) U/L Total Protein 6.9 (6.3-8.2) g/dL Albumin 4.2 (3.5-5.0) g/dL Calcium panel 07/31/21 Range/Units 14:45 Calcium 9.4 (8.4-10.2) mg/dL Albumin 4.2 (3.5-5.0) g/dL Pituitary panel 07/31/21 Range/Units 14:45 Sodium 140 (137-145) mmol/L Potassium 2.9 L (3.5-5.1) mmol/L Chloride 110 H (98-107) mmol/L Carbon Dioxide 20 L (22-30) mmol/L BUN 6 L (9-20) mg/dL Creatinine 0.57 L (0.66-1.25) mg/dL Glucose 109 H (74-99) mg/dL Calcium 9.4 (8.4-10.2) mg/dL Adrenal panel 07/31/21 Range/Units 14:45 Sodium 140 (137-145) mmol/L Potassium 2.9 L (3.5-5.1) mmol/L Chloride 110 H (98-107) mmol/L Carbon Dioxide 20 L (22-30) mmol/L BUN 6 L (9-20) mg/dL Creatinine 0.57 L (0.66-1.25) mg/dL Glucose 109 H (74-99) mg/dL Calcium 9.4 (8.4-10.2) mg/dL Total Bilirubin 0.4 (0.2-1.3) mg/dL AST 44 (17-59) U/L ALT 36 (4-49) U/L Alkaline Phosphatase 102 (38-126) U/L Total Protein 6.9 (6.3-8.2) g/dL Albumin 4.2 (3.5-5.0) g/dL
[2021-07-31] MEDS: KETOROLAC 15 MG/ML 1 ML VIAL IVP SCH (19:58)
[2021-07-31] MEDS: NICOTINE 14MG/24HR PATCH TRANSDERM SCH (19:58)
[2021-07-31] MEDS: carBAMazepine 200 MG TAB PO SCH (19:59)
[2021-07-31] MEDS: HYDROmorphone 1 MG/ML 1 ML SYRINGE IVP PRN (21:32)
[2021-07-31] MEDS: PIPERACILLIN-TAZOBACTAM 3.375 GM in SODIUM CHLORIDE 0.9% 100 ML IVPB SCH (23:42)
[2021-07-31] MEDS: ACETAMINOPHEN TAB 500 MG TAB PO SCH (23:43)
[2021-08-01] MEDS: KETOROLAC 15 MG/ML 1 ML VIAL IVP SCH ×4 (02:33→20:31)
[2021-08-01] MEDS: ACETAMINOPHEN TAB 500 MG TAB PO SCH ×3 (05:36→18:30)
[2021-08-01] MEDS: HYDROmorphone 1 MG/ML 1 ML SYRINGE IVP PRN (05:39)
[2021-08-01 06:02] LABS: Basophils % (A) 1 %; Eosinophils # (A) 0.1 k/uL (0-0.7); Eosinophils % (A) 2 %; HCT 44.5 % (39.0-53.0); HGB 14.4 gm/dL (13.0-17.5); Lymphocytes # (A) 1.9 k/uL (1.0-4.8); Lymphocytes % (A) 32 %; MCHC 32.4 g/dL (31.0-37.0); MCV 98.8 fL (80.0-100.0); Mean Platelet Volume 7.5; Monocytes # (A) 0.5 k/uL (0-1.0); Monocytes % (A) 9 %; Neutrophils # (A) 3.2 k/uL (1.3-7.7); Neutrophils % (A) 54 %; Platelet Count 225 k/uL (150-450); RDW 12.8 % (11.5-15.5); WBC 5.9 k/uL (3.8-10.6)
[2021-08-01 06:19] LABS: ALT 31 U/L (4-49); AST 39 U/L (17-59); African American GFR (CKD) >90 (>60 ml/min/1.73 sqM); Albumin 3.5 g/dL (3.5-5.0); Albumin/Globulin Ratio 1.3; Alkaline Phosphatase 103 U/L (38-126); Anion Gap 6 mmol/L; Blood Urea Nitrogen 8 mg/dL (9-20); Calcium 8.4 mg/dL (8.4-10.2); Carbon Dioxide 25 mmol/L (22-30); Chloride 108 mmol/L (98-107); Globulin 2.6 g/dL; Glucose 90 mg/dL (74-99); Non-African American GFR(CKD) >90 (>60 ml/min/1.73 sqM); Sodium 139 mmol/L (137-145); Total Bilirubin 0.5 mg/dL (0.2-1.3); Total Protein 6.1 g/dL (6.3-8.2)
[2021-08-01] MEDS: PIPERACILLIN-TAZOBACTAM 3.375 GM in SODIUM CHLORIDE 0.9% 100 ML IVPB SCH ×2 (07:45→15:42)
[2021-08-01] MEDS: NICOTINE 14MG/24HR PATCH TRANSDERM SCH ×2 (07:45→09:50)
[2021-08-01] MEDS: carBAMazepine 200 MG TAB PO SCH ×2 (07:51→20:31)
[2021-08-01] MEDS ORDERED: ENALAPRILAT 1.25 MG/ML 1 ML VIAL IVP PRN ×2 (08:31→11:25)
[2021-08-01] MEDS ORDERED: PANTOPRAZOLE 40 MG/10 ML VIAL IVP SCH (09:00)
[2021-08-01] MEDS: SODIUM CHLORIDE 0.9% 1,000 ML IV SCH ×2 (10:34→20:31)
--- NOTE | 2021-08-01 11:31 | P.CONS ---
History of Present Illness - Reason for Consult Consult date: 08/01/21 Medical Management Requesting physician: Teresa Sawyer - Chief Complaint Right lower quadrant pain - History of Present Illness Patient is a very pleasant 55-year-old male with a pertinent medical history of prostate cancer with prostatectomy, GERD, seizure disorder and current smoker. Patient presented to the office with acute right lower quadrant pain, described as an ache with occasional sharp sensations, exacerbated by deep palpation. Patient reports abdominal pain starting Thursday that improved on Thursday, but worsened again on Thursday, also had associated diarrhea for the past 3 days. Patient was sent for abdominal CT that showed mild acute appendicitis, and mild diffuse wall thickening of the colon. Patient was referred to the emergency room. White count on admission was 6.3, lactic acid was 2.6. Patient was also found to have a low potassium level of 2.9. Patient was admitted to general surgery, planning for robotic appendectomy today. Patient has been nothing by mouth and was started on IV antibiotics. Review of Systems Constitutional: Denies chills, Denies fever Ears, nose, mouth and throat: Denies headache, Denies vertigo Cardiovascular: Denies chest pain, Denies irregular heart beat Respiratory: Denies cough, Denies dyspnea Gastrointestinal: Reports abdominal pain, Reports change in bowel habits, Reports diarrhea Genitourinary: Denies dysuria Musculoskeletal: Denies gait dysfunction, Denies limitation of motion Integumentary: Denies change in hair/nails, Denies wounds Neurological: Denies change in speech, Denies weakness Psychiatric: Denies anxiety, Denies depression Endocrine: Denies palpitations, Denies polyuria Hematologic/Lymphatic: Denies easy bruising Allergic/Immunologic: Denies angioedema Past Medical History Past Medical History: Cancer, GERD/Reflux, Seizure Disorder Additional Past Medical History / Comment(s): Dog bite on hand 03/16/21 on Doxycycline, patient states Dr ayala. Current prostate cancer. "BP a little high, no medication necessary". Last seizure 4 yrs ago. History of Any Multi-Drug Resistant Organisms: None Reported Past Surgical History: Prostate Surgery Past Anesthesia/Blood Transfusion Reactions: Motion Sickness Additional Past Anesthesia/Blood Transfusion Reaction / Comm: Has never had anesthesia. Motion sickness X1. Past Psychological History: No Psychological Hx Reported Smoking Status: Current every day smoker Past Alcohol Use History: Daily, Heavy Additional Past Alcohol Use History / Comment(s): Has been smoking for 30 yrs, 1 ppd or less. Past Drug Use History: Marijuana Additional Drug Use History / Comment(s): Occasional Marijuana, 3-4 times a week. Aware no Alcohol or Marijuana 24 hrs prior to procedure. - Past Family History Mother Family Medical History: No Reported History Medications and Allergies Home Medications Medication Instructions Recorded Confirmed Type Omeprazole [PriLOSEC] 20 mg PO DAILY PRN 03/20/21 07/31/21 History carBAMazepine 200 mg PO BID 03/20/21 07/31/21 History Sildenafil [Revatio] 20 mg PO DAILY 07/31/21 07/31/21 History diphenhydrAMINE HCL [Benadryl] 25 mg PO HS 07/31/21 07/31/21 History Allergies Allergy/AdvReac Type Severity Reaction Status Date / Time Penicillins Allergy Unknown Verified 07/31/21 16:18 Childhood Physical Exam Vitals: Vital Signs Temp Pulse Pulse Resp BP BP Pulse Ox 08/01/21 10:48 161/97 08/01/21 09:57 97.6 F 65 16 149/99 97 08/01/21 08:00 16 08/01/21 07:00 97.6 F 65 16 149/99 97 08/01/21 01:55 97.9 F 70 17 144/93 97 07/31/21 19:33 98.0 F 74 18 177/98 98 07/31/21 16:52 97.9 F 74 18 169/109 97 07/31/21 16:24 145/98 07/31/21 16:17 97.8 F 76 16 146/104 96 07/31/21 15:07 98.2 F 89 16 161/93 94 L Intake and Output 07/31/21 08/01/21 08/01/21 22:59 06:59 14:59 Other: Voiding Method Toilet # Voids 1 1 Weight 117.934 kg - Constitutional General appearance: cooperative, no acute distress, obese - EENT Eyes: EOMI, PERRLA ENT: normal oropharynx - Neck Neck: normal ROM - Respiratory Respiratory: bilateral: CTA - Cardiovascular Rhythm: regular Heart sounds: normal: S1, S2 - Gastrointestinal General gastrointestinal: normal bowel sounds, soft, tenderness Localized gastrointestinal: tender: RLQ - Integumentary Integumentary: normal - Neurologic Neurologic: CNII-XII intact - Musculoskeletal Musculoskeletal: gait normal - Psychiatric Psychiatric: A&O x's 3, appropriate affect, intact judgment & insight Results CBC & Chem 7: 08/01/21 05:33 08/01/21 05:33 Labs: Abnormal Lab Results - Last 24 Hours (Table) 07/31/21 07/31/21 07/31/21 Range/Units 14:45 14:45 14:45 Monocytes # (Manual) 1.01 H (0-1.0) k/uL Potassium 2.9 L (3.5-5.1) mmol/L Chloride 110 H (98-107) mmol/L Carbon Dioxide 20 L (22-30) mmol/L BUN 6 L (9-20) mg/dL Creatinine 0.57 L (0.66-1.25) mg/dL Glucose 109 H (74-99) mg/dL Plasma Lactic Acid Samuel 2.6 H* (0.7-2.0) mmol/L Total Protein (6.3-8.2) g/dL 08/01/21 Range/Units 05:33 Monocytes # (Manual) (0-1.0) k/uL Potassium (3.5-5.1) mmol/L Chloride 108 H (98-107) mmol/L Carbon Dioxide (22-30) mmol/L BUN 8 L (9-20) mg/dL Creatinine (0.66-1.25) mg/dL Glucose (74-99) mg/dL Plasma Lactic Acid Samuel (0.7-2.0) mmol/L Total Protein 6.1 L (6.3-8.2) g/dL CT scan - abdomen: report reviewed Assessment and Plan Assessment: Acute Appendicitis Hypokalemia Elevated lactic acid, resolved Hypertension History of Prostate cancer Seizure disorder Tobacco abuse Plan: Appendectomy planned for today with Dr. Sawyer Potassium replaced, improved to 4.0 IV fluid and antibiotics for elevated lactic and appendicitis, lactic decreased to 2.0 IV vasotec for elevated blood pressure NPO diet for surgery Further recommendations to come based on patient's clinical course. Time with Patient: Greater than 30
[2021-08-01] MEDS ORDERED: hydrALAZINE HCL 20 MG/ML 1 ML VIAL IVP PRN (15:22)
[2021-08-01] MEDS ORDERED: IV FLUID CONTINUATION 1,000 ML IV ONE (16:37)
[2021-08-01] MEDS ORDERED: HEPARIN SODIUM,PORCINE/PF 5,000 UNIT/0.5 ML SYRINGE SQ ONE (16:49)
[2021-08-01] MEDS ORDERED: hydrALAZINE HCL 20 MG/ML 1 ML VIAL ONE (18:14)
[2021-08-01] MEDS ORDERED: ROCURONIUM 10 MG/ML (5 ML VIAL) IV ONE (18:14)
[2021-08-01] MEDS ORDERED: LIDOCAINE 2% INJ 20 MG/ML (2 ML VIAL) ONE (18:14)
[2021-08-01] MEDS ORDERED: SUCCINYLCHOLINE CHLORIDE VIAL 200 MG/10 ML VIAL IV ONE (18:14)
[2021-08-01] MEDS ORDERED: GLYCOPYRROLATE 0.2 MG/ML 2 ML VIAL ONE (18:14)
[2021-08-01] MEDS ORDERED: MIDAZOLAM 2 MG/2 ML VIAL ONE (18:14)
[2021-08-01] MEDS ORDERED: NEOSTIGMINE 1 MG/ML 10 ML VIAL ONE (18:14)
[2021-08-01] MEDS ORDERED: fentaNYL (PF) 50 MCG/ML 2 ML AMP ONE (18:14)
[2021-08-01] MEDS ORDERED: PROPOFOL 10 MG/ML 20 ML VIAL IV ONE (18:14)
[2021-08-01] MEDS ORDERED: SODIUM CHLORIDE 0.9% 50 ML with ceFAZolin 2,000 MG IV ONE ×2 (18:17)
--- NOTE | 2021-08-01 18:20 | P.HPADDEND ---
H&P Addendum H&P Addendum Date: 08/01/21 Patient seen and evaluated. Reports improvement in his abdominal pain. Robotic appendectomy reviewed.
[2021-08-01] MEDS ORDERED: LIDOCAINE 0.5%-EPI 1:200,000 50 ML VIAL SQ ONE ×2 (18:34→18:35)
[2021-08-01] MEDS ORDERED: HYDROmorphone 0.5 MG/0.5 ML SYRINGE IVP ONE ×2 (19:12→19:30)
--- NOTE | 2021-08-01 19:19 | P.OP ---
Date of Procedure: 08/01/21 Description of Procedure: SURGEON: TERESA SAWYER MD Preoperative Diagnosis: 1. Acute appendicitis 2. History of tobacco use 3. History of prostate cancer 4. Morbid obesity due to excess calories, BMI 35.3 5. Gastroesophageal reflux disease 6. Seizure disorder 7. Motion sickness 8. History of prostatectomy Postoperative Diagnosis: 1. Acute appendicitis 2. History of tobacco use 3. History of prostate cancer 4. Morbid obesity due to excess calories, BMI 35.3 5. Gastroesophageal reflux disease 6. Seizure disorder 7. Motion sickness 8. History of prostatectomy Procedure(s) Performed: 1. Robotic-assisted daVinci Xi laparoscopic appendectomy Anesthesia: GETA, local Estimated Blood Loss (ml): 5 Pathology: other (appendix) Condition: stable Disposition: floor Operative Findings: 1. Acute appendicitis without rupture with mild inflammation 2. Terminal ileum unremarkable 3. Cecum unremarkable 4. No inguinal hernia INDICATIONS: The patient is a 45-year-old male who presents with acute appendicitis. Benefits and risks, including infection, open surgery, and bleeding for additional surgery was discussed at length. Informed consent was obtained by his parents. All questions of the patient and family were answered. DESCRIPTION: The patient was transferred to the operating room and placed in supine position. The patient had previously voided. The abdomen was then prepped and draped in standard sterile fashion as Ioban was placed along the abdomen to minimize any contamination of skin floor. After a timeout protocol was performed, attention was then brought to the left upper quadrant whereby a 0 degree 5 mm laparoscopic trocar entry was performed. The abdominal cavity was entered and insufflated to 12 mmHg pressure, which was tolerated well. Diagnostic laparoscopy demonstrated no injury to bowel, viscera or mesentery. Next a robotic 8-mm trocar was placed along the left lower quadrant, 10-cm lateral to the midline. A 12 mm port was placed along the left upper quadrant and another 8-mm port left lateral abdominal wall. Ports were placed 8 cm apart from each other including 15-20 cm away from the target anatomy of the right pelvis. The patient was then placed in Trendelenburg position, at least 7 down and right side up at least 7. The robotic da Morales XI system was primed and docked from the left side of the patient. Using atraumatic graspers and vessel sealer, the robotic system was docked and primed as described. Instruments were interchanged by the assistant hall director including graspers, robotic stapler and vessel sealer. Next, attention was brought to identify the cecum. A systematic view within the abdominal cavity was started with the small bowel which was unremarkable. The base of the cecum was unremarkable. No inguinal hernias were identified. The body of the appendix was moderately dilated with moderate periappendicitis. No perforation was identified. The appendix was dissected free from its surrounding tissues. Blue 30 mm robotic staple load was fired along the base of the appendix. The staple line was hemostatic. Hemostasis was checked prior to undocking the robot. Turbid peritoneal fluid was drawn from the pelvis. The robot was undocked. I re-scrubbed into the case. The specimen was removed from the abdominal cavity with an Endo Catch bag through the 12 mm trocar at the left upper quadrant. The fascia was less than 8 mm. All instruments and pneumoperitoneum were evacuated from the abdominal cavity. Local anesthetic was infiltrated to all wounds for postop analgesia. All incisions were also cleansed with diluted hydrogen peroxide. The incisions were closed with 4-0 Monocryl. Exofin glue was applied to the rest of the skin incisions. The patient had tolerated the procedure well. The patient was extubated successfully. The patient was transferred to the postanesthesia care unit in stable condition. Plan - Discharge Summary New Discharge Prescriptions: New Simethicone [Gas-X] 125 mg PO AC-TID PRN #20 capsule PRN Reason: Pain Ibuprofen [Motrin] 600 mg PO Q8HR PRN #30 tab PRN Reason: Pain Simethicone [Gas-X] 125 mg PO AC-TID PRN #20 capsule PRN Reason: Pain Ibuprofen [Motrin] 600 mg PO Q8HR PRN #30 tab PRN Reason: Pain Acetaminophen Tab [Tylenol Tab] 1,000 mg PO Q6HR PRN #30 tablet PRN Reason: Pain Acetaminophen Tab [Tylenol Tab] 1,000 mg PO Q6HR PRN #30 tablet PRN Reason: Pain Continue Omeprazole [PriLOSEC] 20 mg PO DAILY PRN PRN Reason: Heartburn carBAMazepine 200 mg PO BID diphenhydrAMINE HCL [Benadryl] 25 mg PO HS Sildenafil [Revatio] 20 mg PO DAILY Discharge Medication List Omeprazole [PriLOSEC] 20 mg PO DAILY PRN 03/20/21 [History] carBAMazepine 200 mg PO BID 03/20/21 [History] Sildenafil [Revatio] 20 mg PO DAILY 07/31/21 [History] diphenhydrAMINE HCL [Benadryl] 25 mg PO HS 07/31/21 [History] Acetaminophen Tab [Tylenol Tab] 1,000 mg PO Q6HR PRN #30 tablet 08/01/21 [Rx] Acetaminophen Tab [Tylenol Tab] 1,000 mg PO Q6HR PRN #30 tablet 08/01/21 [Rx] Ibuprofen [Motrin] 600 mg PO Q8HR PRN #30 tab 08/01/21 [Rx] Ibuprofen [Motrin] 600 mg PO Q8HR PRN #30 tab 08/01/21 [Rx] Simethicone [Gas-X] 125 mg PO AC-TID PRN #20 capsule 08/01/21 [Rx] Simethicone [Gas-X] 125 mg PO AC-TID PRN #20 capsule 08/01/21 [Rx] Follow up Appointment(s)/Referral(s): Ham Alcantara MD [Primary Care Provider] - 1-2 days Teresa Sawyer MD [STAFF PHYSICIAN] - 08/06/21 (Telehealth) Patient Instructions/Handouts: *Surgery [facility] - Managing Your Pain After Surgery Without Opioids, Laparoscopic Appendectomy (DC) Activity/Diet/Wound Care/Special Instructions: Recommend low-fat diet for the next 2 days. No lifting over 10 pounds in 2 weeks until August 15. May shower. No bath tub soaks for two weeks until August 15. Diet as tolerated. Use Tylenol, simethicone and ibuprofen or Aleve scheduled for the next 24-48 hours for best pain relief. Use ice along incisions for today to prevent swelling. Discharge Disposition: HOME SELF-CARE
--- NOTE | 2021-08-01 19:20 | P.DS ---
Providers Date of admission: 07/31/21 16:00 Expected date of discharge: 08/01/21 Attending physician: Teresa Sawyer Consults: 07/31/21 16:01 Consult Physician Routine Consulting Provider: Ham Alcantara Consult Reason/Comments: Acute appy Do you want consulting provider notified?: Yes 07/31/21 18:38 Consult Physician Routine Consulting Provider: [facility] Consult Reason/Comments: [facility] Do you want consulting provider notified?: Yes Primary care physician: Ham Alcantara - Discharge Diagnosis(es) (1) Acute appendicitis Current Visit: Yes Status: Acute Hospital Course: Postoperative Diagnosis: 1. Acute appendicitis 2. History of tobacco use 3. History of prostate cancer 4. Morbid obesity due to excess calories, BMI 35.3 5. Gastroesophageal reflux disease 6. Seizure disorder 7. Motion sickness 8. History of prostatectomy COURSE: The patient is a 45-year-old male who presents with acute appendicitis. He underwent robotic appendectomy. Postoperatively, pain was controlled. He was tolerating diet. Patient was discharged home. Discharge instructions reviewed in detail. Pertinent Studies: CT of the abdomen and pelvis confirming appendicitis Procedures: Procedure(s) Performed: 1. Robotic-assisted daVinci Xi laparoscopic appendectomy Anesthesia: GETA, local Estimated Blood Loss (ml): 5 Pathology: other (appendix) Condition: stable Disposition: floor Operative Findings: 1. Acute appendicitis without rupture with mild inflammation 2. Terminal ileum unremarkable 3. Cecum unremarkable 4. No inguinal hernia Patient Condition at Discharge: Stable Plan - Discharge Summary New Discharge Prescriptions: New Simethicone [Gas-X] 125 mg PO AC-TID PRN #20 capsule PRN Reason: Pain Ibuprofen [Motrin] 600 mg PO Q8HR PRN #30 tab PRN Reason: Pain Simethicone [Gas-X] 125 mg PO AC-TID PRN #20 capsule PRN Reason: Pain Ibuprofen [Motrin] 600 mg PO Q8HR PRN #30 tab PRN Reason: Pain Acetaminophen Tab [Tylenol Tab] 1,000 mg PO Q6HR PRN #30 tablet PRN Reason: Pain Acetaminophen Tab [Tylenol Tab] 1,000 mg PO Q6HR PRN #30 tablet PRN Reason: Pain Continue Omeprazole [PriLOSEC] 20 mg PO DAILY PRN PRN Reason: Heartburn carBAMazepine 200 mg PO BID diphenhydrAMINE HCL [Benadryl] 25 mg PO HS Sildenafil [Revatio] 20 mg PO DAILY Discharge Medication List Omeprazole [PriLOSEC] 20 mg PO DAILY PRN 03/20/21 [History] carBAMazepine 200 mg PO BID 03/20/21 [History] Sildenafil [Revatio] 20 mg PO DAILY 07/31/21 [History] diphenhydrAMINE HCL [Benadryl] 25 mg PO HS 07/31/21 [History] Acetaminophen Tab [Tylenol Tab] 1,000 mg PO Q6HR PRN #30 tablet 08/01/21 [Rx] Acetaminophen Tab [Tylenol Tab] 1,000 mg PO Q6HR PRN #30 tablet 08/01/21 [Rx] Ibuprofen [Motrin] 600 mg PO Q8HR PRN #30 tab 08/01/21 [Rx] Ibuprofen [Motrin] 600 mg PO Q8HR PRN #30 tab 08/01/21 [Rx] Simethicone [Gas-X] 125 mg PO AC-TID PRN #20 capsule 08/01/21 [Rx] Simethicone [Gas-X] 125 mg PO AC-TID PRN #20 capsule 08/01/21 [Rx] Follow up Appointment(s)/Referral(s): Ham Alcantara MD [Primary Care Provider] - 1-2 days Teresa Sawyer MD [STAFF PHYSICIAN] - 08/06/21 (Telehealth) Patient Instructions/Handouts: *Surgery [facility] - Managing Your Pain After Surgery Without Opioids, Laparoscopic Appendectomy (DC) Activity/Diet/Wound Care/Special Instructions: Recommend low-fat diet for the next 2 days. No lifting over 10 pounds in 2 weeks until August 15. May shower. No bath tub soaks for two weeks until August 15. Diet as tolerated. Use Tylenol, simethicone and ibuprofen or Aleve scheduled for the next 24-48 hours for best pain relief. Use ice along incisions for today to prevent swelling. Discharge Disposition: HOME SELF-CARE
[2021-08-01 19:24] VITALS: RESP 16
[2021-08-01 21:20] VITALS: BP 147/88; PULSE 91; TEMP 97.6
== END 2021-08-01 21:00 | disposition home or self-care (01) ==
LOC: EC 14:55 → 6NMEDSUR 16:00
PROVIDERS: ADMIT Surgery Plastic and Reconstructive Surgery; ATTEND Surgery Plastic and Reconstructive Surgery
DX: K35.80 Unspecified acute appendicitis (principal); F17.210 Nicotine dependence, cigarettes, uncomplicated; K21.9 Gastro-esophageal reflux disease without esophagitis; G40.909 Epilepsy, unspecified, not intractable, without status epilepticus; E66.01 Morbid (severe) obesity due to excess calories; Z68.35 Body mass index [BMI] 35.0-35.9, adult; E87.6 Hypokalemia; I10 Essential (primary) hypertension; R79.89 Other specified abnormal findings of blood chemistry; T75.3XXA Motion sickness, initial encounter; Z85.46 Personal history of malignant neoplasm of prostate; Z79.899 Other long term (current) drug therapy; Z88.0 Allergy status to penicillin; Z90.79 Acquired absence of other genital organ(s)
CPT/HCPCS: 44970; S2900; 36415; 80053; 83605; 85025; 85610; 85730; 86850; 86900; 86901; 87040; 88304; 96365; 96375; 99285

== ENCOUNTER → 2022-04-11 | Outpatient (CLI) | payer BC ==
--- NOTE | 2022-04-14 12:57 | PE ---
EXAMINATION TYPE: PET CT fusion skull to thigh DATE OF EXAM: 04/11/2022 CLINICAL INDICATION:Male, 46 years old with history of C61 Prostate CA; TECHNIQUE: Following the intravenous administration of 5.86 mCi of Ga-68 Illuccix (PSMA), whole bod y images are performed from the skull base to the midthigh. Images are reviewed on the computer in t he coronal, axial, and sagittal planes. Reconstructed rotating images are created on independent wor kstation and reviewed on the computer. A non-contrast CT is performed in conjunction with the PET s can. COMPARISON: CT 07/31/2021, PET/CT None, FINDINGS: Mediastinal SUV mean is 0.7. Hepatic parenchyma SUV mean is 3.4. SKULL BASE AND NECK: No suspicious radiotracer activity. CHEST, MEDIASTINUM, AND HILAR REGION: No suspicious radiotracer activity. ABDOMEN AND PELVIS: * Right external iliac lymph node measuring up to 2.8 cm in short axis without increased FDG activit y. Max SUV 0.3 and Hounsfield units of 1.7. * The prostate gland is surgically absent. Surgical bed FDG activity just below the bladder felt is to be within the urethra max SUV 8.4. OSSEOUS STRUCTURES: No suspicious radiotracer activity. OTHER CT: Bilateral fat-containing inguinal hernias. Scattered clonic diverticulosis. No evidence of obstructive uropathy. IMPRESSION: 1. No suspicious radiotracer activity to suggest metastatic disease. Surgical bed activity felt to b e within the urethra. 2. Right external iliac lymph node without increased FDG activity most consistent with a cyst.
== END | disposition home or self-care (01) ==
LOC: RADPETMAIN 14:49
PROVIDERS: ATTEND Urology
DX: C61 Malignant neoplasm of prostate (principal)
CPT/HCPCS: 78815; A9596

== ENCOUNTER → 2022-12-24 | Outpatient (CLI) | payer BC ==
--- NOTE | 2022-12-24 15:53 | NM ---
EXAMINATION TYPE: NM bone scan whole body DATE OF EXAM: 12/24/2022 COMPARISON: PET/CT 04/11/2022 CLINICAL INDICATION: Male, 47 years old with history of C61 PROSTATE CANCER; Delayed whole-body scanning was performed following the injection of 23.0 mCi Tc 99m MDP. Images acq uired 3 hours post injection. FINDINGS: No abnormal uptake is identified within the appendicular or axial skeleton to suggest metastatic dise ase. There is increased uptake within the bilateral shoulder, sternoclavicular, and sacroiliac joints con sistent with degenerative changes. No other photopenic areas or areas of increased activity are ident ified. Physiologic radiotracer activity is demonstrated in the kidneys and bladder. IMPRESSION: Nothing to suggest metastatic disease.
== END | disposition home or self-care (01) ==
LOC: RADNMMAIN 10:28
PROVIDERS: ATTEND Urology
DX: C61 Malignant neoplasm of prostate (principal)
CPT/HCPCS: 78306; A9503

== ENCOUNTER 2023-01-31 19:57 | Emergency (ER) | payer BC ==
[2023-01-31 20:27] VITALS: BP 160/83; PULSE 83; RESP 16; TEMP 98.2
[2023-01-31] MEDS ORDERED: TERBUTALINE 1 MG/ML VIAL SQ STA ×2 (21:20→22:11)
--- NOTE | 2023-01-31 23:47 | ED ---
General Adult HPI - General Chief complaint: Urogenital Stated complaint: male gu Time Seen by Provider: 01/31/23 20:47 Source: patient, RN notes reviewed Mode of arrival: ambulatory Limitations: no limitations - History of Present Illness Initial comments: 47-year-old male with no significant past medical history presents to the emergency department with a chief complaint of priapism. Patient reports tenderness At approximately 1 PM. He has had an erection ever since. He reports it is painful and feels the pressure in his genital area. He denies any urinary difficulty, Dysuria, hematuria, testicular swelling. - Related Data Home Medications Medication Instructions Recorded Confirmed Omeprazole [PriLOSEC] 20 mg PO DAILY PRN 03/20/21 07/31/21 carBAMazepine 200 mg PO BID 03/20/21 07/31/21 Sildenafil [Revatio] 20 mg PO DAILY 07/31/21 07/31/21 diphenhydrAMINE HCL [Benadryl] 25 mg PO HS 07/31/21 07/31/21 Previous Rx's Medication Instructions Recorded Acetaminophen Tab [Tylenol Tab] 1,000 mg PO Q6HR PRN #30 tablet 08/01/21 Acetaminophen Tab [Tylenol Tab] 1,000 mg PO Q6HR PRN #30 tablet 08/01/21 Ibuprofen [Motrin] 600 mg PO Q8HR PRN #30 tab 08/01/21 Ibuprofen [Motrin] 600 mg PO Q8HR PRN #30 tab 08/01/21 Simethicone [Gas-X] 125 mg PO AC-TID PRN #20 capsule 08/01/21 Simethicone [Gas-X] 125 mg PO AC-TID PRN #20 capsule 08/01/21 Allergies Allergy/AdvReac Type Severity Reaction Status Date / Time Penicillins Allergy Unknown Verified 07/31/21 16:18 Childhood Review of Systems ROS Statement: Those systems with pertinent positive or pertinent negative responses have been documented in the HPI. ROS Other: All systems not noted in ROS Statement are negative. Past Medical History Past Medical History: Cancer, GERD/Reflux, Seizure Disorder Additional Past Medical History / Comment(s): Dog bite on hand 03/16/21 on Doxycycline, patient states Dr ayala. Current prostate cancer. "BP a little high, no medication necessary". Last seizure 4 yrs ago. History of Any Multi-Drug Resistant Organisms: None Reported Past Surgical History: Prostate Surgery Past Anesthesia/Blood Transfusion Reactions: Motion Sickness Additional Past Anesthesia/Blood Transfusion Reaction / Comment(s): Has never had anesthesia. Motion sickness X1. Past Psychological History: No Psychological Hx Reported Smoking Status: Current every day smoker Past Alcohol Use History: Daily, Heavy Past Drug Use History: Marijuana - Past Family History Mother Family Medical History: No Reported History General Exam - General Exam Comments Initial Comments: General: Alert, in no acute distress Head: atraumatic normocephalic. Eyes PERRL, EOMI intact, mucous membranes moist Respiratory: Lungs clear to auscultation bilaterally Cardiovascular: Heart rate regular rate and rhythm Abdominal: Soft without guarding or rebound Extremities: Normal inspection with full range of motion and normal capillary refill Neuroogic: alert and oriented 3, CN II-XII intact, able to ambulate with steady gait Skin: warm dry and intact with normal color Limitations: no limitations Course Vital Signs 01/31/23 20:14 Temperature 98.2 F Pulse Rate 83 Respiratory 16 Rate Blood Pressure 160/83 O2 Sat by Pulse 97 Oximetry - Reevaluation(s) Reevaluation #1: 01/31/23 23:01 attempted to evaluate the patient status post medications. Patient in restroom. Reevaluation #2: 01/31/23 23:46 Attempted to be evaluated the patient. Patient eloped. Medical Decision Making - Medical Decision Making Was pt. sent in by a medical professional or institution (Dr. PA, ROVING TECHNICIAN, urgent care, hospital, or prison...) When possible be specific @ -[No] Did you speak to anyone other than the patient for history (EMS, parent, family, police, friend...)? What history was obtained from this source @ -[No] Did you review nursing and triage notes (agree or disagree)? Why? @ -[I reviewed and agree with nursing and triage notes] Were old charts reviewed (outside hosp., previous admission, EMS record, old EKG, old radiological studies, urgent care reports/EKG's, prison records)? Report findings @ -[No old charts were reviewed] Differential Diagnosis (chest pain, altered mental status, abdominal pain women, abdominal pain men, vaginal bleeding, weakness, fever, dyspnea, syncope, headache, dizziness, GI bleed, back pain, seizure, CVA, palpatations, mental health, musculoskeletal)? @ -[not applicable] EKG interpreted by me (3pts min.). @ -[As above] X-rays interpreted by me (1pt min.). @ -[None done] CT interpreted by me (1pt min.). @ -[None done] U/S interpreted by me (1pt. min.). @ -[None done] What testing was considered but not performed or refused? (CT, X-rays, U/S, labs)? Why? @ -[None] What meds were considered but not given or refused? Why? @ -[None] Did you discuss the management of the patient with other professionals (professionals i.e. , PA, ROVING TECHNICIAN, lab, RT, psych nurse, nephrology social worker, bracelet former, teacher, district resource officer, bilingual patient support caseworker)? Give summary @ -[No] Was smoking cessation discussed for >3mins.? @ -[No] Was critical care preformed (if so, how long)? @ -[No] Were there social determinants of health that impacted care today? How? (Homelessness, low income, unemployed, alcoholism, drug addiction, t ransportation, low edu. Level, literacy, decrease access to med. care, half-way, rehab)? @ -[No] Was there de-escalation of care discussed even if they declined (Discuss DNR or withdrawal of care, Hospice)? DNR status @ -[No] What co-morbidities impacted this encounter? (DM, HTN, Smoking, COPD, CAD, Cancer, CVA, ARF, Chemo, Hep., AIDS, mental health diagnosis, sleep apnea, morbid obesity)? @ -[None] Was patient admitted / discharged? Hospital course, mention meds given and route, prescriptions, significant lab abnormalities, going to OR and other pertinent info. @ -Left AGAINST MEDICAL ADVICE. This is a 47-year-old male presents the emergency department with priapism. Patient has since physical exam performed., Exam patient was found to have priapism. Patient was given 2 doses of turbutaline.. She was reevaluated multiple times however patient eloped prior to completion of care. Case discussed with Dr. Rodríguez, [facility] who agrees with pOC. Undiagnosed new problem with uncertain prognosis? @ -[No] Drug Therapy requiring intensive monitoring for toxicity (Heparin, Nitro, Insulin, Cardizem)? @ -[No] Were any procedures done? @ -[No] Diagnosis/symptom? @ -Priapism Acute, or Chronic, or Acute on Chronic? @ -Acute Uncomplicated (without systemic symptoms) or Complicated (systemic symptoms)? @ -Uncomplicated Side effects of treatment? @ -[No] Exacerbation, Progression, or Severe Exacerbation? @ -[No] Poses a threat to life or bodily function? How? (Chest pain, [place], [place], pneumonia, PE, COPD, DKA, ARF, appy, cholecystitis, CVA, Diverticulitis, Homicidal, Suicidal, threat to staff... and all critical care pts) @ -Low likelihood ] Disposition Clinical Impression: Priapism Disposition: LEFT AGAINST MEDICAL ADVICE Condition: Undetermined Is patient prescribed a controlled substance at d/c from ED?: No Referrals: Ham Alcantara MD [Primary Care Provider] - 1-2 days Time of Disposition: 01:50
== END 2023-01-31 23:52 | disposition left against medical advice (07) ==
LOC: EC 19:57
DX: N48.30 Priapism, unspecified (principal); K21.9 Gastro-esophageal reflux disease without esophagitis; F17.200 Nicotine dependence, unspecified, uncomplicated; F12.90 Cannabis use, unspecified, uncomplicated; Z79.899 Other long term (current) drug therapy; Z88.0 Allergy status to penicillin
CPT/HCPCS: 99283; 96372 ×2; J3105